=== PATIENT | male | born 1995 ===

== ENCOUNTER → 2016-09-14 | Outpatient (CLI) | payer OTHER ==
--- NOTE | 2016-09-14 12:53 | RADIOLOGY REPORT (SQ) ---
EXAM DESCRIPTION: DUPLEX ART/DAY FLOW COMPLETE COMPLETED DATE/TIME: 09/14/2016 10:29 am REASON FOR STUDY: HTN/AMILCAR I10 ESSENTIAL (PRIMARY) HYPERTENSION COMPARISON: None. TECHNIQUE: Realtime and static grayscale images acquired. Selected color Doppler, velocities and spe ctral images recorded. LIMITATIONS: Difficulty visualizing the renal artery origins off the midline abdominal aorta related to bowel gas. FINDINGS: RIGHT KIDNEY: RENAL ARTERY VELOCITIES: 103 cm/sec. Segmental artery velocity of 61 cm/sec. RENAL VEIN: Color doppler flow present, patent. VELOCITY RATIO: 0.7. Normal waveforms. KIDNEY: Normal size. No significant pathology. LEFT KIDNEY: RENAL ARTERY VELOCITIES: 131 cm/sec. Segmental artery velocity 69 cm/sec. RENAL VEIN: Color doppler flow present, patent. VELOCITY RATIO: 0.88. Normal waveforms. KIDNEY: Normal size. No significant pathology. BLADDER: Normal. Bilateral ureteral jets are identified OTHER: No other significant finding. IMPRESSION: NO DOPPLER EVIDENCE OF HEMODYNAMICALLY SIGNIFICANT RENAL ARTERY STENOSIS. COMMENT: NORMAL RENAL ARTERY/AORTA VELOCITY RATIO IS LESS THAN OR EQUAL TO 3.5. TECHNICAL DOCUMENTATION: JOB ID: [id number] [employer]- All Rights Reserved
== END ==
LOC: RAD 08:55
DX: I70.1 Atherosclerosis of renal artery (principal)
CPT/HCPCS: 93975